=== PATIENT | female | born 1945 | race Caucasian/White ===

== ENCOUNTER → 2018-05-05 | Outpatient (CLI) | payer OTHER ==
[~2018-05-05] MED LIST: REGADENOSON 0.4 MG/5 ML DISP.SYRIN. IV ONE
--- NOTE | 2018-05-05 13:14 | RAD ---
MR#: [id number] Date of Study: 05/05/2018 Ordering Physician: SUSAN LOPEZ, Referring Physician: REBECA ISAAC Tech: RT Cinthia (R) (N) APPROVED REPORT Test Type: Pharmacological Stress Nurse/Tech: Diane Pitts RN Test Indications: Chest pain Cardiac History: No known cardiac Medications: See Electronic Medical Record Medical History: See Electronic Medical Record Resting ECG: A-fib with PVCs Resting Heart Rate: 71 bpm Resting Blood Pressure: 163/91mmHg Pretest Chest Pain: No chest pain Nurse/Tech Notes irregular rate and rhythm, lungs are clear to auscultation. Consent: The procedure was explained to the patient in lay terms. Informed consent was witnessed. Juan eout was entered into [employer]. History and Stress Test performed by RAMON Flores, SOCORRO (R) (N) Pharm. Details Pharmacologic stress testing was performed using 0.4mg per 5ml of regadenoson given intravenously ove r 7-10 seconds. Stress Symptoms Nausea POST EXERCISE Reason for Termination: Infusion complete Target HR: Yes Max HR: 126 bpm Max Blood Pressure: 175/76mmHg Blood Pressure response to exercise: Normal blood pressure response during stress. Heart Rate response to exercise: WNL Chest Pain: No. Arrhythmia: Yes. PVCs ST Change: No. INTERPRETATION Stress EKG Conclusion: Baseline EKG showed sinus rhythm with PAC's. No ischemic changes at peak stre ss. PVC's without any significant arrhythmias. Rest: Stress: Viability: Radiopharm.Tc99m [id number] Sestamibi Dose10.8mCi 32mCi Duration 13min. 13min. Img Date 05/05/2018 05/05/2018 Inj-Img [id number]. 60min. Rest Admin Site:IV - Right WristAdministrator:RAMON Flores ARRT (R)(N) Stress Admin Site: IV - Right WristAdministrator: RT Lupis Vicente)(N) STRESS DATA End Diast. Vol.75.0mlAv. Heart Rate91.0bpm End Syst. Vol.28.0mlCO Index BSA0.0L/min Myocardial Uioy962.0gEject. Xldusegf57.0% Stress Rates Pk. Fill Rate1.84EDV/secLVtime Pk. Fill 58.61msec Pk. Empty Rate5.35ESV/secLVtime Pk. Xunsn662.19msec 1/3 Pk. Fill1.30EDV/sec Stress Scores Regional WT0.00Summed WT11.00 Regional WM0.00Summed WM9.00 Study quality was good. Left Ventricular size was Normal at Rest and Stress. Lung uptake was . Left Ventricular ejection fraction is 63%. The rest and stress images show normal perfusion, normal contraction and thickening. LV Perf. Quant 17 Seg. SSS1.00 17 Seg. SRS0.00 17 Seg. SDS1.00 Stress Defect Extent (% LAD)1.30Rest Defect Extent (% LAD)0.00Rev. Defect Extent (% LAD)1.30 Stress Defect Extent (% LCX) 0.00Rest Defect Extent (% LCX)0.00Rev. Defect Extent (% LCX)0.00 Stress Defect Extent (% RCA)0.00Rest Defect Extent (% RCA)0.00Rev. Defect Extent (% RCA)0.00 Stress Defect Extent (% ETHEL)0.40Rest Defect Extent (% ETHEL)0.00Rev. Defect Extent (% ETHEL)0.40 Conclusion 1. Regadenoson cardioisotope stress test did not show any evidence of ischemia or infarct. 2. Normal left ventricular systolic function with ejection fraction calculated at 63%. 3. Low risk for cardiac events. Signed by : Son Foster, Electronically Approved : 05/05/2018 13:12:08
== END | disposition home or self-care (01) ==
LOC: NM 08:38
PROVIDERS: ATTEND Physician Assistant Medical
DX: R07.9 Chest pain, unspecified (principal); I48.91 Unspecified atrial fibrillation
CPT/HCPCS: 78452; 93017; 96374; A9500; J2785